=== PATIENT | female | born 1985 | race Caucasian/White ===

== ENCOUNTER → 2016-12-27 07:23 | Emergency (ER) | payer BC, MEDICAID ==
[~2016-12-27 07:23] MED LIST: Ibuprofen TAB* 600 MG PO ONE
[2016-12-27 09:29] LABS: Albumin 3.5 g/dL (3.2-5.2); Calcium 8.8 mg/dL (8.6-10.3); EGFR African American 109.1 (>60); EGFR Non-African American 84.8 (>60); Globulin 3.7 g/dL (2-4); Potassium 3.5 mmol/L (3.5-5.0); Total Bilirubin 0.6 mg/dL (0.2-1.0); Total Protein 7.2 g/dL (6.4-8.9)
[2016-12-27 09:31] LABS: Hematocrit 46 % (35-47); Hemoglobin 15.8 g/dl (12.0-16.0); Mean Corpuscular HGB Conc 34 g/dl (31-36); Mean Corpuscular Hemoglobin 30 pg (27-31); Mean Corpuscular Volume 88 fL (80-97); Mean Platelet Volume 9 um3 (7.4-10.4); Red Cell Distribution Width 12 % (10.5-15); White Blood Count 7.2 10^3/ul (3.5-10.8)
[2016-12-27] MEDS: NS 0.9% 1000 ML* 2,000 ML IV ONE ×2 (10:14→10:58)
[2016-12-27 11:58] LABS: Urine Bacteria Absent (Absent); Urine Bilirubin Negative (Negative); Urine Glucose Negative (Negative); Urine Nitrite Negative (Negative)
[2016-12-27 14:50] LABS: BF RBC Count #1 0; BF RBC Count #2 0; BF WBC Count #1 0; BF WBC Count #2 0; Body Fluid Appearance Clear; Body Fluid WBC 0 /mcL; CSF Glucose 60 mg/dL (40-70); RBC counts within 6%? Yes; WBC counts within 15%? Yes
[2016-12-27 15:00] LABS: Body Fluid Total Cells Counted 2
[2016-12-27 16:25] VITALS: BP 104/64
[2016-12-31 16:16] LABS: Lyme Disease IgG Ab WB Negative (Negative)
--- NOTE | 2017-01-03 23:12 | ED ---
Sarah Valero Auryana, scribed for Chapincito Priest MD on 12/27/16 at 1553 . Influenza-Like Illness - HPI Summary HPI Summary: 31 year old female presents with intractable fever and malaise starting Wednesday. Significant other reports that she has had decreased sleep since the onset of the fever - max 102/103. She also has diffuse myalgia, and arthralgia, neck pain , photophobia, and a headache. She denies any vomiting, cough, rhinorrhea, sore throat, abdominal pain, hematuria, or any burning with urination. Significant other reports that she has been drinking normally - pushing fluids. Fever initially was alleviated ibuprofen - no longer alleviated. Last dose of ibuprofen is 20:30 last night. reports that she has been working outside in the yard more frequently - normal for mild fatigue. Reports normal appetite. She denies influenza vaccine this year. No contact with children. PMHx is significant for eosinophilic esophagitis - with overproduction of WBC, migraines, and psychogenic non-epileptic attacks. SHx in significant for marijuana - medical cannabis per significant other and denies any recreational drug use. - History of Current Complaint Chief Complaint: EDFever Time Seen by Provider: 12/27/16 08:18 Hx Obtained From: Patient, Family/[employer] - Onset/Duration: Gradual Onset Severity: Mild Associated Signs & Symptoms: Fever, T Max - 103, F/C - F, Myalgia - diffuse, Headache - with photophobia Related Hx: Smoking - marijuana - Allergy/Home Medications Allergies/Adverse Reactions: Allergies Allergy/AdvReac Type Severity Reaction Status Date / Time Cephalexin [From Keflex] Allergy Unknown Unknown Verified 07/07/12 19:10 Reaction Details Adhesive Tape Allergy Rash Verified 07/07/12 19:09 Beclomethasone [From Qvar] Allergy Unknown Verified 05/17/15 14:38 Reaction Details Latex Allergy Rash Verified 07/07/12 19:09 Prednisone Allergy Unknown Verified 05/17/15 14:38 Reaction Details PMH/Surg Hx/FS Hx/Imm Hx Endocrine/Hematology History: Denies: Hx Anticoagulant Therapy, Hx Diabetes, Hx Thyroid Disease Cardiovascular History: Denies: Hx Hypertension, Hx Pacemaker/ICD Respiratory History: Reports: Hx Asthma Denies: Hx Chronic Obstructive Pulmonary Disease (COPD) History: Denies: Hx Renal Disease Neurological History: Denies: Hx Dementia, Hx Seizures Psychiatric History: Denies: Hx Substance Abuse - Cancer History Cancer Type, Location and Year: eosinophahlic esophogitis - Immunization History Date of Tetanus Vaccine: more than 5 yr ago Date of Influenza Vaccine: no Infectious Disease History: No Infectious Disease History: Denies: Hx Hepatitis, Hx Human Immunodeficiency Virus (HIV), Traveled Outside the [place] in Last 30 Days - Family History Known Family History: Positive: Renal Disease - peritoneal dialysis., Other - Social History Lives: With Family Alcohol Use: None Substance Use Type: Reports: Marijuana Substance Use Comment - Amount & Last Used: daily Smoking Status (MU): Never Smoked Tobacco Review of Systems Positive: Fever. Negative: Chills Positive: Photophobia. Negative: Erythema ENT: Negative Negative: Sore Throat, Nasal Discharge Cardiovascular: Negative Negative: Chest Pain Respiratory: Negative Negative: Shortness Of Breath, Cough Negative: Abdominal Pain, Vomiting, Nausea Genitourinary: Negative Positive: no symptoms reported. Negative: burning, dysuria Positive: Myalgia - neck pain, malaise . Negative: Edema Skin: Negative Negative: Rash Neurological: Other - no dizziness Positive: Headache - with photophobia Psychological: Normal All Other Systems Reviewed And Are Negative: Yes Physical Exam - Summary Physical Exam Summary: Constitutional: Well-developed, Well-nourished, Alert. (-) Distressed Skin: Warm, Dry HENT: Normocephalic; Atraumatic Eyes: Conjunctiva normal Neck: Musculoskeletal ROM normal neck. (-) JVD, (-) Stridor, (-) Tracheal deviation. No meningismus. Cardio: Rhythm regular, rate normal, Heart sounds normal; Intact distal pulses; The pedal pulses are 2+ and symmetric. Radial pulses are 2+ and symmetric. (-) Murmur Pulmonary/Chest wall: Effort normal. (-) Respiratory distress, (-) Wheezes, (-) Rales Abd: Soft, (-) Tenderness, (-) Distension, (-) Guarding, (-) Rebound. No CVA tenderness. Musculoskeletal: (-) Edema. No joint effusions. Lymph: (-) Cervical adenopathy Neuro: Alert, Oriented x3 Psych: Mood and affect Normal Triage Information Reviewed: Yes Vital Signs On Initial Exam: Initial Vitals Temp Pulse Resp BP Pulse Ox 100 F 115 16 123/69 100 07/02/17 07:25 12/27/16 07:25 12/27/16 07:25 12/27/16 07:25 12/27/16 07:25 Vital Signs Reviewed: Yes Procedures - Lumbar Puncture Position: Lateral Decubitus - interospace of L4/L5 Anesthesia Used: 1.0% Lido - 3 ml Spinal Needle Used: 22 Gauge - 3.5 in Lumbar Puncture Note: 1 attempt Diagnostics - Vital Signs Vital Signs Temp Pulse Resp BP Pulse Ox 12/27/16 07:25 100 F 115 16 123/69 100 - Laboratory Result Diagrams: 12/27/16 09:15 12/27/16 08:45 Lab Statement: Any lab studies that have been ordered have been reviewed, and results considered in the medical decision making process. Re-Evaluation - Re-Evaluation First Eval Re-Evaluation Time: 15:46 - patient improved, no signs of meningimus Change: Improved Flu Symptom Course/Dx - Course Course Of Treatment: 31 year old female presents with intractable fever and malaise starting Samuel. Significant other reports that she has had decreased sleep since the onset of the fever - max 102/103. She also has diffuse myalgia, and arthralgia, neck pain, photophobia, and a headache. She denies any vomiting , cough, rhinorrhea, sore throat, abdominal pain, hematuria, or any burning with urination. Significant other reports that she has been drinking normally - pushing fluids. Fever initially was alleviated ibuprofen - no longer alleviated. Last dose of ibuprofen is 20:30 last night. reports that she has been working outside in the yard more frequently - normal for mild fatigue. Reports normal appetite. She denies influenza vaccine this year. No contact with children. No longer on BC - attempting to get . PMHx is significant for eosinophilic esophagitis - with overproduction of WBC, migraines , and psychogenic non-epileptic attacks. SHx in significant for marijuana - medical cannabis per significant other and denies any recreational drug use. FHx is significant for peritoneal dialysis. Sodium 130. Elevated AST and ALT. Lactic 1.0. Coagulation WNL. Blood work otherwise WNL. UA contaminated. Negative influenza A and B. CSF- NEGATIVE. Patient is improved on re-evaluation ;No meningismus.- dicussed discharge with patient and family - mother, father and fiance. Given instructions on Tylenol and ibuprofen use. Given f/u with [facility]. DDx: viral syndrome, U.T.I. flu, no suspicious for meningitis. Dx: fever, unspecified. - Diagnoses Differential Diagnosis/HQI/PQRI: Positive: Other - DDx: viral syndrome, U.T.I. flu, no suspicious for meningitis Provider Diagnoses: Fever, unspecified Discharge - Discharge Plan Condition: Stable Disposition: HOME Patient Education Materials: Fever in Adults (ED) Referrals: [facility], [facility] [Primary Care Provider] - 3 Days Additional Instructions: RETURN TO THE EMERGENCY DEPARTMENT FOR CHANGING OR WORSENING SYMPTOMS The documentation as recorded by the Sarah horne Auryana accurately reflects the service I personally performed and the decisions made by Cem veliz Jerry, MD.
== END | disposition home or self-care (01) ==
LOC: ED 07:23
DX: R50.9 Fever, unspecified (principal); R53.81 Other malaise; H53.149 Visual discomfort, unspecified
CPT/HCPCS: 36415; 62270; 80053; 81003; 81015; 82945; 83605; 84157; 85025; 85610; 85730; 86617; 86618; 87040; 87070; 87205; 87502; 89051; 99283; A9270-GY